=== PATIENT | male | born 1995 | race Caucasian/White ===

== ENCOUNTER 2017-08-02 17:53 | Emergency (ER) | payer OTHER ==
[~2017-08-02] VITALS: Ht 182.9 cm; Wt 74.8 kg
[2017-08-02 18:22] LABS: ABSOLUTE BASOPHILS 0.1 thou/uL (0.0-0.2); ABSOLUTE MONOCYTES 1.1 thou/uL (0.0-1.2); BASOPHILS 0.8 %; EOSINOPHILS 0.4 %; HEMATOCRIT 51.9 % (42.0-52.0); LYMPHOCYTES 29.5 %; MCH 31.1 pg (26.0-34.0); MCHC 34.6 g/dL (28.0-37.0); MCV 89.7 fL (80.0-100.0); MONOCYTES 10.4 %; MPV 7.8 fl. (7.2-11.1); NUCLEATED RBCS 0 /100WBC; PLATELET COUNT* 214 thou/uL (150-400); POLYS 58.9 %; RBC 5.78 mil/uL (4.50-6.00); RDW-CV 12.7 % (10.5-14.5); WBC 10.1 thou/uL (4.0-11.0)
[2017-08-02 18:36] LABS: CALCIUM 8.9 mg/dL (8.5-10.1); CREATININE 1.1 mg/dL (0.6-1.3)
[2017-08-02 18:41] LABS: ALBUMIN 3.6 g/dL (3.4-5.0); TOTAL BILIRUBIN 0.4 mg/dL (<0.1-1.0); TOTAL PROTEIN 7.3 g/dL (6.4-8.2)
[2017-08-02 19:24] VITALS: BP 105/57
== END 2017-08-02 19:24 | disposition home or self-care (01) ==
LOC: M.ERS 17:53
PROVIDERS: Nurse Practitioner Family
DX: R20.0 Anesthesia of skin (principal); R53.1 Weakness; R42 Dizziness and giddiness; I73.00 Raynaud's syndrome without gangrene; Z88.1 Allergy status to other antibiotic agents